=== PATIENT | female | born 1945 | race Caucasian/White ===

== ENCOUNTER 2016-07-17 11:16 | Day surgery (SDC) | payer MEDICARE, OTHER ==
[~2016-07-17 11:16] MED LIST: RINGER'S SOLUTION,LACTATED 1,000 ML IV PRN
--- OUTSIDE RECORDS SUMMARY | 2016-07-17 11:20 | XMS REPORT | Continuity of Care Document ---
:1945 Author Organization [facility] ([facility]) [place] [address] Phone [phone] Care Team Providers Name Role Phone Unavailable Primary Care Provider Unavailable Source Comments This disclosure is being made pursuant to the Care Everywhere program, applicable federal and state laws, and may not contain all informaitonavailable regarding this patient.[facility] ([facility]) Active Allergies and Adverse Reactions Not on File Current Medications Not on file Active Problems Not on file Social History Tobacco Use Types Packs/Day Years Used Date Never Assessed Plan of Care Health Maintenance Due Date Last Done Comments HCV Screening 1945 Hepatitis B Vaccine (1 of 3 - Primary Series) 1945 Tdap Vaccine 1957 Lipid Disorder Screening 1964 Td Vaccine 1964 Mammogram 1986 Colonoscopy 12/02/1996 Zoster Vaccine 2006 Osteoporosis Screening (DXA Bone Density) 12/04/2011 Pneumococcal Vaccine (1 of 2 - PCV13) 12/04/2011 Influenza Vaccine: Seasonal (#1) 11/01/2015 Results from Last 3 Months Not on file
[2016-07-17] MEDS ORDERED: RINGER'S SOLUTION,LACTATED 1,000 ML IV PRN (16:35)
[2016-07-17 17:15] VITALS: BP 150/71
--- NOTE | 2016-07-18 18:27 | OR ---
Operative Report - Dictated Report Narrative: OPERATIVE REPORT DATE OF OPERATION: 07/17/2016 PREOPERATIVE DIAGNOSIS: History of Crohn's disease. No recent dedicated colon studies POSTOPERATIVE DIAGNOSIS: Normal colonoscopy to the apparent small bowel to colon anastomosis OPERATION: Colonoscopy SURGEON: Tiffani Russell MD ANESTHESIA: PARESH Akers CRNA INDICATIONS FOR PROCEDURE: Patient is a 70-year-old female who presents self referred for colon surveillance. She had a right colon resection in 1992 for Crohn's disease. She has had subsequent colonoscopies in 2005 and 2011. She has no history of colon polyps. There is no family history of colon cancer. She had been advised 5 year interval colon screening by her initial surgeon due to her Crohn's disease FINDINGS: Normal colonoscopy to the apparent small bowel to colon anastomosis NARRATIVE OF PROCEDURE: The patient was identified in the holding area, and prior to the administration of anesthetic, a multidisciplinary timeout was observed. With the patient in the left lateral position and after the administration of intravenous sedation, the perineum was inspected. There was no evidence of pilonidal disease or skin breakdown. The external appearance of the anus was normal. Sphincter tone was good. The flexible fiberoptic colonoscope was inserted into the rectum which was insufflated with air. The rectal mucosa and submucosal vascular pattern appeared normal, the prep was seen to be complete. The scope was advanced through the sigmoid colon, up the descending colon, and around the splenic flexure where the triangular haustral architecture of the transverse colon was seen. The scope was advanced across the transverse colon until a transition to apparent small bowel mucosa was encountered. The mucosa at this level appeared normal. The scope was then slowly withdrawn in a circular fashion so that all aspects of colonic mucosa were inspected. The colon was normal in caliber. The haustral architecture appeared well preserved throughout with no evidence of external compression. The mucosa and submucosal vascular pattern appeared normal, specifically there was no gross evidence to suggest colitis or inflammatory bowel disease and no AV malformations were seen. No diverticulosis was demonstrated. Several undigested pill matrices were observed. No polyps were encountered. The scope was gradually withdrawn to the level of the rectum. As much insufflated air as possible was removed. The scope was withdrawn from the patient and the procedure terminated. The patient tolerated the anesthetic and procedure well without complication and was transferred back to the ambulatory surgery area awake and in stable condition. The patient remained stable throughout a period of postoperative observation. She denied abdominal discomfort, was able to tolerate by mouth intake, and was up without assistance. I shared the operative findings with the patient and she was given copies of the photographs which appear in the medical record. She was discharged home with instructions not to engage in hazardous activity today , but may resume normal activity tomorrow, and advance diet as tolerated. She is to continue those medications as listed in the history and physical exam. RECOMMENDATION: With 3 normal colon exams she perhaps could be considered a normal risk individual with 10 years surveillance interval, however she would prefer a 5 year interval. Reviewed and electronically signed
== END 2016-07-17 11:17 | disposition home or self-care (01) ==
LOC: AMB 11:16
PROVIDERS: ATTEND Surgery
PROC: 0DJD8ZZ Inspection of Lower Intestinal Tract, Via Natural or Artificial Opening Endoscopic (ICD-10-PCS; principal; 2016-07-17 13:45)
DX: Z12.11 Encounter for screening for malignant neoplasm of colon (principal); K50.90 Crohn's disease, unspecified, without complications; I10 Essential (primary) hypertension; E78.5 Hyperlipidemia, unspecified; J45.909 Unspecified asthma, uncomplicated; F41.8 Other specified anxiety disorders; Z68.33 Body mass index [BMI] 33.0-33.9, adult